=== PATIENT | female | born 1985 | race Caucasian/White ===

== ENCOUNTER 2016-08-13 21:12 | Inpatient (IN) | payer OTHER ==
--- NOTE | ~2016-08-13 | PA ---
Unit #: [id number] #: [id number] Patient: IONA COLE [id number] [facility] [address] [place] [address] [id number] MR#: [id number] NAME: IONA COLE. ROOM: P209 Age: 31 Sex: F Admission Date: 08/13/2016 : 1985 Date of Assessment: 08/14/2016 Attending Physician: Prem Gipson M.D. Admitting Physician: Prem Gipson M.D. Primary Care Physician: Generic Doctor Not In System PSYCHIATRIC ASSESSMENT IDENTIFYING INFORMATION The patient is a 31-year-old white female admitted to the [address] [place] [address] unit with recurrent abuse of alcohol. INFORMANT(S) Patient RELIABILITY Good CHIEF COMPLAINT Not given. HISTORY OF PRESENT ILLNESS The patient is a 31-year-old hoarse white female with a history of alcohol dependence. She was last admitted to this facility under the care of Dr. Beavers in June of this year. She states she maintained sobriety for approximately 1 month, but then "got sick" and was unable to keep with her therapy appointments. She now reports recurrent use of alcohol stating that she is drinking 1 pint to one-fifth of hard liquor on a daily basis. She denies use of other psychoactive substances. She denies current suicidal or homicidal ideation. She does complain of some recent deprived sleep and depressed mood related to her ongoing alcohol use. She does state that she craves alcohol. For more history, please refer to previously dictated notes. PAST PSYCHIATRIC HISTORY Reviewed, no changes. FAMILY HISTORY/SOCIAL HISTORY Reviewed, no changes. MEDICATION HISTORY Reviewed, no changes. MEDICATIONS Albuterol ALLERGIES NSAIDS, acetaminophen, erythromycin MENTAL STATUS EXAM Unit #: [id number] #: [id number] Patient: IONA COLE At this time, reveals the patient to be a well-developed, well-nourished white female appearing her stated age. She is in no apparent physical distress at the time of the examination. She is awake, alert, and oriented in all spheres. Her mood mildly dysphoric. Her affect congruent. Speech is generally relevant and coherent. There are no gross deficits in memory or cognition noted. Intelligence is judged to be in the average range based on fund of knowledge. The patient is cooperative throughout the interview. She is currently denying suicidal or homicidal ideation or psychotic features. Insight and judgment appear to be intact. ASSETS Motivation for change. LIABILITIES Lack of resources. ADMITTING DIAGNOSES 1. Alcohol use disorder. 2. Asthma. PSYCHIATRIC PLAN/TREATMENT GOALS The patient remains hospitalized for safety and stabilization. We will continue Albuterol and a routine detoxification protocol has been initiated. I will add 333 mg 2 tablets three times daily and will also be addressing the patient's complaints of alcohol craving. ESTIMATED LENGTH OF STAY Three to five days. FOLLOWUP To take place through the auspices of Community Mental Health and Chemical Dependence Treatment resources in the [facility]. ASSETS AND LIABILITIES ADMITTING DIAGNOSES PSYCHIATRIC PLAN/TREATMENT GOALS DISCHARGE PLANNING ESTIMATED LENGTH OF STAY Dictated by... Prem Gipson M.D. Unit #: [id number] #: [id number] Patient: IONA COLE Neal MURRAY/mary TD: 08/14/2016 12:41 JOB #: [id number] PSYCHIATRIC ASSESSMENT X Prem Gipson MD X PSYCHIATRIC ASSESSMENT
--- NOTE | ~2016-08-13 | HP ---
Unit #: [id number] #: [id number] Patient: MEGHA COLE [id number] [place] [address] [id number] I MR#: [id number] NAME: MEGHA COLE. ROOM: P209 Age: 31 Sex: F Admission Date: 08/13/2016 : 1985 Attending Physician: Prem Gipson M.D. Admitting Physician: Prem Gipson M.D. Primary Care Physician: Generic Doctor Not In System HISTORY AND PHYSICAL HISTORY OF PRESENT ILLNESS Megha is a 31 year old female admitted on 08/13/[address] [place] [address] for detox from alcohol. PAST MEDICAL HISTORY 1. Asthma 2. Obesity 3. Cirrhosis of the liver PAST SURGICAL HISTORY Liver biopsy. SOCIAL HISTORY Smokes half pack of cigarettes daily. Drinks half of a pint to one full pint of whiskey daily. No legal drug use. She is currently and living with her fiance. FAMILY HISTORY Medically noncontributory. REVIEW OF SYSTEMS CONSTITUTIONAL: No fever or chills. HEENT: Denies any sore throat, ear pain or runny nose. CARDIOVASCULAR: Denies chest pain, irregular heart rhythm or palpitations. CHEST: Denies shortness of breath or cough. No hemoptysis. GASTROINTESTINAL: Denies nausea, vomiting, diarrhea or chronic constipation. ENDOCRINE: Denies history of increased thirst or urination. No recent significant weight loss or gain. GENITOURINARY: Denies dysuria, frequency, or hematuria. SKIN: Denies any rashes. HEMATOLOGIC: Denies history of increased bleeding or bruising. MUSCULOSKELETAL: Denies any hot, swollen joints. No generalized muscle pain. NEUROLOGIC: Denies problems with vision or speech. No frequent, severe headaches. No numbness, tingling or weakness in any extremities. Denies loss of bladder or bowel control. CURRENT MEDICATIONS Albuterol ALLERGIES No known drug allergies. Unit #: [id number] #: [id number] Patient: MEGHA COLE PHYSICAL EXAMINATION GENERAL: Alert, well-nourished, in no apparent distress. VITAL SIGNS: Blood pressure 153/95, heart rate 110, respirations 16, temperature 98.5. WEIGHT: 156 pounds. HEIGHT: 5'2". SKIN: Warm and dry without rash or lesion. HEENT: Normocephalic. TMs not viewed. Oral and nasal passages clear. Conjunctivae clear. Pupils equal, round and reactive to light and accommodation. Extraocular movements intact. NECK: Supple without lymphadenopathy or thyromegaly. HEART: Regular rate and rhythm without murmur. LUNGS: Clear. ABDOMEN: Soft, nontender. : Not done. EXTREMITIES: No evidence of cyanosis, clubbing or edema. Moves all extremities without focal deficit. NEUROLOGICAL: Grossly within normal limits. Cranial Nerves: II: Visual devlin are intact. III, IV AND : Extraocular movements are intact. Pupils are equal, round and reactive to light. V: Facial sensation is grossly normal. VII: Facial movements and expression are normal. VIII: Auditory acuity grossly intact. IX, X: Uvula is midline. Phonation is normal. XI: Patient shrugs shoulders and turns head normally. XII: Tongue protrudes in the midline. Sensory and Motor Function: Sensory and motor sensation is grossly normal. Motor: moves all extremities well. Coordination: Gait is normal. Deep Tendon Reflexes: Intact. IMPRESSION 1. Psychiatric admission 2. Asthma 3. Obesity 4. Cirrhosis of the liver RECOMMENDATIONS PSYCHIATRIC: Per psychiatrist. MEDICAL: I see no contraindications to participating in facility's activities. MEDICAL PROGNOSIS Good. MEDICAL CONDITION Stable. Dictated by... Shari Faustin/samaria Unit #: [id number] #: [id number] Patient: MEGHA COLE TD: 08/14/2016 23:56 JOB #: [id number] HISTORY AND PHYSICAL X STEPHY GIMENEZ APRN X HISTORY AND PHYSICAL
--- NOTE | ~2016-08-13 | PN ---
Unit #: [id number] #: [id number] Patient: IONA COLE [id number] [facility] [address] [place] [address] [id number] I MR#: [id number] NAME: IONA COLE ROOM: P209 Age: 31 Sex: F Admission Date: 08/13/2016 : 1985 Attending Physician: Prem Gipson M.D. Admitting Physician: Prem Gipson M.D. Primary Care Physician: Scotty Doctor Not In System [facility] PROGRESS NOTES DATE 08/16/2016 DISCUSSION The patient's detox continues to uneventfully. She continues to express interest in residential chemical dependence treatment. I will add BuSpar 10 mg t.i.d. given the patient's complaints of ongoing anxiety. Dictated by... rPem Gipson M.D. CB/franklin TD: 08/16/2016 15:20 JOB #: [id number] [facility] PROGRESS NOTES X Prem Gipson MD PROGRESS NOTE
--- NOTE | ~2016-08-13 | DS ---
Unit #: [id number] #: [id number] Patient: IONA COLE [id number] [facility] [address] [place] [address] [id number] I MR#: [id number] NAME: IONA COLE. ROOM: P209 Age: 31 Sex: F Admission Date: 08/13/2016 : 1985 Discharge Date: 08/18/2016 Attending Physician: Prem Gipson M.D. Primary Care Physician: Generic Doctor Not In System DISCHARGE SUMMARY REASON FOR ADMISSION The patient is a 31-year-old white female, admitted for alcohol detox. HOSPITAL COURSE The patient was admitted to the [address] [place] [address] unit and placed on routine detoxification protocol for alcohol. Her stay in the hospital was a fairly uneventful one. She was generally pleasant and cooperative during interactions with peers and staff and requested discharge on 08/11/2016, discharge was ordered. FINAL DIAGNOSES Alcohol use disorder, asthma. DISPOSITION ON DISCHARGE The patient is discharged on the following medications; Campral 333 mg two tablets t.i.d. for alcohol craving, BuSpar 10 mg t.i.d. for anxiety. DISCHARGE INSTRUCTIONS No dietary or physical restrictions were placed upon the patient at the time of discharge. FOLLOWUP Followup will take place through the auspices of community mental health resources in the [facility]. PROGNOSIS The patient's prognosis is considered fair. Dictated by... Prem Gipson M.D. CB/preet TD: 08/18/2016 22:51 JOB #: [id number] Unit #: [id number] #: [id number] Patient: OINA COLE DISCHARGE SUMMARY X Prem Gipson MD X DISCHARGE SUMMARY
--- NOTE | ~2016-08-13 | PN ---
Unit #: [id number] #: [id number] Patient: IONA COLE [id number] [facility] [address] [place] [address] [id number] I MR#: [id number] NAME: IONA COLE ROOM: P209 Age: 31 Sex: F Admission Date: 08/13/2016 : 1985 Attending Physician: Prem Gipson M.D. Admitting Physician: Prem Gipson M.D. Primary Care Physician: Generic Doctor Not In System [facility] PROGRESS NOTES DATE 08/15/2016 DISCUSSION The patient's detox continues uneventfully. I have encouraged to increase her participation within the therapeutic milieu. She offers no other complaints today. Dictated by... Prem Gipson M.D. CB/samaria TD: 08/16/2016 00:59 JOB #: [id number] [facility] PROGRESS NOTES X Prem Gipson MD X PROGRESS NOTE
[2016-08-14 11:31] LABS: URINE APPEARANCE CLOUDY; URINE BILIRUBIN NEG (NEG); URINE BLOOD NEG (NEG); URINE COLOR DK YELLOW; URINE GLUCOSE NEG (NEG); URINE KETONE NEG (NEG); URINE LEUKOCYTE ESTERASE NEG (NEG); URINE NITRATE NEG (NEG); URINE PROTEIN NEG (NEG); URINE SPECIFIC GRAVITY 1.031 (1.003-1.035); URINE UROBILINOGEN 0.2 MG/DL (NEG)
[2016-08-14 12:20] LABS: AMPHETAMINE NEG (NEG); BARBITURATES NEG (NEG); BENZODIAZEPINES POS (NEG); COCAINE NEG (NEG); MARIJUANA NEG (NEG); OPIATES NEG (NEG); TRICYCLIC ANTIDEPRESSANTS NEG (NEG); U METHADONE NEG (NEG)
== END 2016-08-18 17:23 | disposition home or self-care (01) | DRG 897 ==
LOC: P2S 21:12 → POF 08-15 14:00 → P2S 08-15 14:08
PROVIDERS: Specialist
PROC: HZ2ZZZZ Detoxification Services for Substance Abuse Treatment (ICD-10-PCS; principal; 2016-08-13)
DX: F10.20 Alcohol dependence, uncomplicated (principal); K74.60 Unspecified cirrhosis of liver; J45.909 Unspecified asthma, uncomplicated; E66.9 Obesity, unspecified; F41.9 Anxiety disorder, unspecified; F32.9 Major depressive disorder, single episode, unspecified
CPT/HCPCS: 80307; 81003

== ENCOUNTER 2016-09-20 20:38 | Inpatient (IN) | payer OTHER ==
--- NOTE | ~2016-09-20 | PA ---
Unit #: [id number] #: [id number] Patient: IONA COLE [id number] [facility] [address] [place] [address] [id number] MR#: [id number] NAME: IONA COLE. ROOM: P208 Age: 31 Sex: F Admission Date: 09/20/2016 : 1985 Date of Assessment: 09/21/2016 Attending Physician: Prem Gipson M.D. Admitting Physician: Prem iGpson M.D. Primary Care Physician: Shanelle Primary Care Physician PSYCHIATRIC ASSESSMENT IDENTIFYING INFORMATION The patient is a 31-year-old, , white female admitted to the [address] [place] [address] unit for alcohol detox. She was just discharged from this facility in August of this year. CHIEF COMPLAINT I started drinking again. INFORMANT Patient. Patient's reliability is good. HISTORY OF PRESENT ILLNESS The patient is a 31-year-old, white female last discharged from this facility on 08/18/2016. She reports that upon discharge from the hospital she "tried to do it alone" and began drinking shortly after her discharge. She has been drinking up to a fifth of hard liquor on a daily basis. She denies abuse of other psychoactive substances. The patient denies history of complicated withdrawal. She reports that her family has become distressed by her ongoing alcohol use and that this is what (1) her coming to the hospital. She is currently denying suicidal or homicidal ideation and denies any psychotic symptoms. For a more complete history of present illness, please refer to previously dictated. PAST PSYCHIATRIC HISTORY Reviewed, no changes. PAST MEDICAL HISTORY Reviewed, no changes. MEDICATIONS 1. BuSpar. 2. Campral. 3. Ventolin. ALLERGIES NSAIDs, acetaminophen, and erythromycin. FAMILY HISTORY Noncontributory. SOCIAL HISTORY Reviewed, no changes. Unit #: [id number] #: [id number] Patient: IONA COLE MENTAL STATUS EXAMINATION At this time reveals the patient to be a well developed, well nourished, white female appearing her stated age. She is in no apparent physical distress at the time of the examination. She is awake and oriented in all spheres. Her mood is mildly dysphoric. Her affect is congruent. Speech is generally relevant and coherent. There are no gross deficits in memory or cognition noted. Intelligence is judged to be in the average range based on fund of knowledge. The patient is cooperative throughout the interview. She is currently reporting no current suicidal or homicidal ideation. She denies any psychotic symptoms. Her judgement and insight appear to be reasonably intact. ASSETS AND LIABILITIES ASSETS: Motivation for change. LIABILITIES: Poor compliance to treatment. DIAGNOSTIC IMPRESSION 1. Alcohol use disorder. 2. Asthma. TREATMENT PLAN The patient remains hospitalized for safety and stabilization. We will continue Campral and will add naltrexone at h.s. in hopes of addressing the patient's ongoing alcohol craving and use. Patient will participate in appropriate renee milieu and activities. ESTIMATED LENGTH OF STAY IN THE HOSPITAL Three to five days with follow up to take place through the auspices of community mental health resources in the [facility]. Dictated by... Prem Gipson M.D. TREVOR/karey TD: 09/21/2016 13:43 JOB #: [id number] PSYCHIATRIC ASSESSMENT Page 1 of 1 X Prem Gipson MD X PSYCHIATRIC ASSESSMENT
--- NOTE | ~2016-09-20 | HP ---
Unit #: [id number] #: [id number] Patient: MEGHA COLE [id number] [place] [address] [id number] MR#: [id number] NAME: MEGHA COLE. ROOM: P208 Age: 31 Sex: F Admission Date: 09/20/2016 : 1985 Attending Physician: Prem Gipson M.D. Admitting Physician: Prem Gipson M.D. Primary Care Physician: Primary Care Physician No HISTORY AND PHYSICAL HISTORY OF PRESENT ILLNESS Megha is a 31 year old admitted to [address] [place] [address] because of his continued abuse of alcohol. She was just discharged from this facility after treatment for the same. PAST MEDICAL HISTORY 1. Asthma 2. Obesity 3. Long history of alcohol abuse 4. Cirrhosis PAST SURGICAL HISTORY Liver biopsy ALLERGIES 1. NSAIDS 2. Acetaminophen 3. Erythromycin SOCIAL HISTORY Smokes one-half pack per day. Drinks a 1/2 pint of whiskey on a daily basis and denies illicit drug use. FAMILY HISTORY Medically noncontributory. REVIEW OF SYSTEMS CONSTITUTIONAL: No fever or chills. HEENT: Denies any sore throat, ear pain or runny nose. CARDIOVASCULAR: Denies chest pain, irregular heart rhythm or palpitations. CHEST: Denies shortness of breath or cough. No hemoptysis. GASTROINTESTINAL: Denies nausea, vomiting, diarrhea or chronic constipation. ENDOCRINE: Denies history of increased thirst or urination. No recent significant weight loss or gain. GENITOURINARY: Denies dysuria, frequency, or hematuria. SKIN: Denies any rashes. HEMATOLOGIC: Denies history of increased bleeding or bruising. MUSCULOSKELETAL: Denies any hot, swollen joints. No generalized muscle pain. NEUROLOGIC: Denies problems with vision or speech. No frequent, severe headaches. No numbness, tingling or weakness in any extremities. Denies loss of bladder or bowel control. Unit #: [id number] #: [id number] Patient: MEGHA COLE CURRENT MEDICATIONS 1. Detox protocol 2. ReVia 50 mg q.h.s. 3. Caporal 666 mg t.i.d. 4. BuSpar 10 mg t.i.d. PHYSICAL EXAMINATION GENERAL: Alert, well-nourished, in no apparent distress. VITAL SIGNS: Blood pressure 118/80, heart rate 100, respirations 16, temperature 98.6. WEIGHT: 155 pounds. HEIGHT: 5'1". SKIN: Warm and dry without rash or lesion. HEENT: Normocephalic. TMs not viewed. Oral and nasal passages clear. Conjunctivae clear. Pupils equal, round and reactive to light and accommodation. Extraocular movements intact. NECK: Supple without lymphadenopathy or thyromegaly. HEART: Regular rate and rhythm without murmur. LUNGS: Clear. ABDOMEN: Soft, nontender. : Not done. EXTREMITIES: No evidence of cyanosis, clubbing or edema. Moves all extremities without focal deficit. NEUROLOGICAL: Grossly within normal limits. Cranial Nerves: II: Visual devlin are intact. III, IV AND : Extraocular movements are intact. Pupils are equal, round and reactive to light. V: Facial sensation is grossly normal. VII: Facial movements and expression are normal. VIII: Auditory acuity grossly intact. IX, X: Uvula is midline. Phonation is normal. XI: Patient shrugs shoulders and turns head normally. XII: Tongue protrudes in the midline. Sensory and Motor Function: Sensory and motor sensation is grossly normal. Motor: moves all extremities well. Coordination: Gait is normal. Deep Tendon Reflexes: Intact. IMPRESSION Psychiatric admission RECOMMENDATIONS PSYCHIATRIC: Per psychiatrist. MEDICAL: I see no contraindications to participating in facility's activities. MEDICAL PROGNOSIS Good. MEDICAL CONDITION Stable. Dictated by... Lu Styles P.A.-C. for Maida Nix M.D. Unit #: [id number] #: [id number] Patient: MEGHA COLE MARYLOU/samaria TD: 09/21/2016 21:01 JOB #: [id number] HISTORY AND PHYSICAL Page 1 of 1 X Lu Styles HISTORY AND PHYSICAL
--- NOTE | ~2016-09-20 | DS ---
Unit #: [id number] #: [id number] Patient: IONA COLE [id number] [place] [address] [id number] MR#: [id number] NAME: IONA COLE. ROOM: P208 Age: 31 Sex: F Admission Date: 09/20/2016 : 1985 Discharge Date: 09/22/2016 Attending Physician: Prem Gipson M.D. Primary Care Physician: Primary Care Physician No DISCHARGE SUMMARY REASON FOR ADMISSION The patient is a 31-year-old white female, admitted to the [address] [place] [address] for alcohol detox. HOSPITAL COURSE The patient was admitted to the [address] [place] [address] and placed on routine detoxification protocol for alcohol. Her home medications were continued including Campral, BuSpar, and Proventil. The patient was also begun on ReVia 50 mg at h.s. in hopes of addressing ongoing alcohol use. The patient's stay in the hospital was a brief and uneventful one. Her detox went smoothly, and she had already made arrangements for treatment at [email or web address] in [place] on 09/22/2016. Discharge was ordered. FINAL DIAGNOSES Alcohol use disorder, asthma. DISCHARGE MEDICATIONS The patient is discharged on the following medications: ReVia 50 mg at h.s. for alcohol craving, Campral 333 mg 2 tablets t.i.d. for alcohol craving, BuSpar 10 mg t.i.d. for anxiety, and Proventil HFA 2 puffs q.4 hours p.r.n. shortness of air. DISCHARGE INSTRUCTIONS No dietary or physical restrictions were placed upon the patient at the time of discharge. FOLLOWUP Followup will take place through the auspices of [email or web address] in [place], [place]. PROGNOSIS The patient's prognosis is fair. Dictated by... Prem Gipson M.D. CB/preet TD: 09/22/2016 17:54 JOB #: [id number] Unit #: [id number] #: [id number] Patient: IONA COLE DISCHARGE SUMMARY Page 1 of 1 X Prem Gipson MD X DISCHARGE SUMMARY
[2016-09-21 09:51] LABS: BASOPHIL# 0.1 X10e3 (0-0.3); BASOPHIL% 0.6 % (0-2.5); EOSINOPHIL# 0.2 X10e3 (0-0.7); EOSINOPHIL% 1.7 % (0.0-7.0); HEMATOCRIT 38.6 % (35.0-45.0); LYMPHOCYTE# 2.3 X10e3 (1.0-3.5); MEAN CORPUSCULAR HEMOGLOBIN 34.3 PG (28-34); MEAN CORPUSCULAR HGB CONC 33.6 g/dL (30-36); MEAN PLATELET VOLUME 8.2 FL (6.5-11.5); MONOCYTE# 0.8 X10e3 (0-1.0); MONOCYTE% 7.3 % (3.0-12.0); NEUTROPHIL# 7.5 X10e3 (1.5-7.1); NEUTROPHIL% 69.4 % (40-75); PLATELET COUNT 256 X10e3 (140-420); RED BLOOD COUNT 3.78 X10e (3.90-5.30); RED CELL DISTRIBUTION WIDTH 16.7 % (11.0-15.5); WHITE BLOOD COUNT 10.8 X10e3 (4.0-10.5)
[2016-09-21 09:59] LABS: DIFF IND NO
[2016-09-21 10:08] LABS: ALBUMIN SERUM 3.4 g/dL (3.5-5.0); BILIRUBIN,TOTAL 0.6 mg/dL (0.2-2.0); BUN/CREATININE RATIO 17.14; CALCIUM SERUM 8.3 mg/dL (8.4-10.2); CREATININE SERUM 0.7 mg/dL (0.6-1.4); GLOM FILT RATE Estimated 113.8 mL/min (>60); POTASSIUM 3.8 mmol/L (3.5-5.1); PROTEIN TOTAL SERUM 6.6 g/dL (6.0-8.3)
[2016-09-22 09:52] LABS: URINE APPEARANCE CLEAR; URINE BILIRUBIN NEG (NEG); URINE BLOOD NEG (NEG); URINE COLOR DK YELLOW; URINE GLUCOSE NEG (NEG); URINE KETONE NEG (NEG); URINE LEUKOCYTE ESTERASE NEG (NEG); URINE NITRATE NEG (NEG); URINE PROTEIN NEG (NEG); URINE SPECIFIC GRAVITY 1.015 (1.003-1.035); URINE UROBILINOGEN 0.2 MG/DL (NEG)
[2016-09-22 11:11] LABS: AMPHETAMINE NEG (NEG); BARBITURATES NEG (NEG); BENZODIAZEPINES POS (NEG); COCAINE NEG (NEG); MARIJUANA NEG (NEG); OPIATES NEG (NEG); TRICYCLIC ANTIDEPRESSANTS NEG (NEG); U METHADONE NEG (NEG)
== END 2016-09-22 14:11 | disposition home or self-care (01) | DRG 897 ==
LOC: P2S 20:38
PROVIDERS: Specialist
PROC: HZ2ZZZZ Detoxification Services for Substance Abuse Treatment (ICD-10-PCS; principal; 2016-09-20)
DX: F10.10 Alcohol abuse, uncomplicated (principal); E66.9 Obesity, unspecified; J45.909 Unspecified asthma, uncomplicated; F17.210 Nicotine dependence, cigarettes, uncomplicated; Z68.29 Body mass index [BMI] 29.0-29.9, adult; Z88.6 Allergy status to analgesic agent; Z88.1 Allergy status to other antibiotic agents
CPT/HCPCS: 80053; 80307; 81003; 84703; 85025; 86592